=== PATIENT | female | born 1990 | race Caucasian/White ===

== ENCOUNTER → 2017-01-10 | Outpatient (CLI) | payer OTHER | LOC: GIMAGING 11:51 | PROVIDERS: ATTEND Registered Nurse | DX: R07.1 Chest pain on breathing (principal); J98.4 Other disorders of lung | CPT/HCPCS: 71020-PO ==

== ENCOUNTER 2017-01-19 08:18 | Emergency (ER) | payer SELFPAY ==
[2017-01-19] MEDS ORDERED: fentaNYL 100 MCG/2 ML INJ IVP ONE (08:52)
--- NOTE | 2017-01-19 08:53 | CPEKG ---
Heart Rate: 94 RR Interval: 638 P-R Interval: 132 QRSD Interval: 112 QT Interval: 360 QTC Interval: 451 P [place]: 63 QRS [place]: 42 T Wave [place]: 3 EKG Severity - ABNORMAL ECG - EKG Impression: SINUS RHYTHM EKG Impression: PROBABLE LEFT ATRIAL ABNORMALITY EKG Impression: NONSPECIFIC INTRAVENTRICULAR CONDUCTION DELAY Electronically Signed By: Ever Haynes 20-Jan-2017 14:10:18
--- NOTE | 2017-01-19 08:54 | EDPHY ---
H & P Stated Complaint: hurts to take a deep breath Time Seen by Provider: 01/19/17 08:43 HPI/ROS: Chief Complaint: Chest pain HPI: 26-year-old woman complaining of chest pain. Patient was diagnosed with pneumonia 1/2 weeks ago after she had some central chest pain which was worse with deep breathing. She was seen at urgent care diagnosed with a left lower lobe pneumonia on chest x-ray. Had a negative D-dimer at that time. Patient was started on a Z-Ricky and doing well. One week ago flew to [facility] with a friend from [facility] to [place]. Patient returned back to [place] yesterday. Patient woke this morning with worsening central chest pain, were standing straight up or taking a deep breath. Feels better either lying back flat or leaning forward. Patient states that yesterday her symptoms had all resolved. No fevers or chills. No cough. No nausea or vomiting. Does not have any risk factors for DVT or PE. No family history of coronary artery disease. Last menstrual period was 3 weeks ago was normal. Pain is worsened with deep inspiration. At worst about an 8/10. No pain at rest or with shallow breathing. ROS: 10 point Review of Systems is negative except as noted in the HPI. PMH: Pneumonia Medications: None, no oral contraceptives Allergies: No known drug allergies Social History: No smoking, occasional alcohol, no recreational drug use Family History: non-contributory Physical Exam: Gen: Awake, Alert, No Distress HEENT: Nose: no rhinorrhea Eyes: PERRLA, EOMI Mouth: Moist mucosa Neck: Supple, no JVD Chest: nontender, lungs clear to auscultation Heart: S1, S2 normal, no murmur Abd: Soft, non-tender, no guarding Back: no CVA tenderness, no midline tenderness Ext: no edema, non-tender Skin: no rash Neuro: CN II-XII intact, Sensation grossly intact, Strength 5/5 in bilateral upper and lower extremities - Personal History LMP (Females 10-55): 22-28 Days Ago Current Tetanus/Diphtheria Vaccine: Unsure Current Tetanus Diphtheria and Acellular Pertussis (TDAP): Unsure - Medical/Surgical History Hx Asthma: No Hx Chronic Respiratory Disease: No Hx Diabetes: No Hx Cardiac Disease: No Hx Renal Disease: No Hx Cirrhosis: No Hx Alcoholism: No Hx HIV/AIDS: No Hx Splenectomy or Spleen Trauma: No Other PMH: PNE - Social History Smoking Status: Never smoked Constitutional: Initial Vital Signs Temperature (C) 36.6 C 01/19/17 08:21 Heart Rate 88 01/19/17 08:21 Respiratory Rate 16 01/19/17 08:21 Blood Pressure 123/78 H 01/19/17 08:21 O2 Sat (%) 95 01/19/17 08:21 O2 Delivery Mode Room Air Allergies/Adverse Reactions: No Known Allergies Allergy (Unverified 01/19/17 08:23) Medical Decision Making - Diagnostics Imaging Results: Imaging Impressions Chest X-Ray 01/19/17 08:51 Impression: Bronchitis with near complete resolution of previously noted left basilar consolidation. ED Course/Re-evaluation: Chest x-ray results noted, significant improvement from prior with a nearly resolved left lower lobe infiltrate. ECG is unremarkable. D-dimer is normal. Pain is improved with analgesia here. Will discharge with follow-up as an outpatient. I have encouraged continue the [id number] nonsteroidals. Will send her home with some Zofran as well. - Data Points Laboratory Results: Laboratory Results 01/19/17 09:05 01/19/17 09:05 01/19/17 01/19/17 01/19/17 09:05 09:05 09:05 WBC RBC Hgb Hct MCV MCH MCHC RDW Plt Count MPV Neut % (Auto) Lymph % (Auto) Snyder % (Auto) Eos % (Auto) Baso % (Auto) Nucleat RBC Rel Count Absolute Neuts (auto) Absolute Lymphs (auto) Absolute Monos (auto) Absolute Eos (auto) Absolute Basos (auto) Absolute Nucleated RBC Immature Gran % Immature Gran # D-Dimer 0.33 ug/mLFEU ug/mLFEU (0.00-0.50) Sodium 143 mEq/L mEq/L (134-144) Potassium 3.7 mEq/L mEq/L (3.5-5.2) Chloride 107 mEq/L mEq/L (97-110) Carbon Dioxide 21 mEq/l L mEq/l (22-31) Anion Gap 15 mEq/L mEq/L (8-16) BUN 13 mg/dL mg/dL (7-23) Creatinine 0.7 mg/dL mg/dL (0.6-1.0) Estimated GFR > 60 Glucose 84 mg/dL mg/dL (70-100) Calcium 9.2 mg/dL mg/dL (8.5-10.4) Beta HCG, Qual NEGATIVE 01/19/17 09:05 WBC 19.99 10^3/uL H 10^3/uL (3.80-9.50) RBC 4.48 10^6/uL 10^6/uL (4.18-5.33) Hgb 13.9 g/dL g/dL (12.6-16.3) Hct 40.4 % % (38.0-47.0) MCV 90.2 fL fL (81.5-99.8) MCH 31.0 pg pg (27.9-34.1) MCHC 34.4 g/dL g/dL (32.4-36.7) RDW 12.8 % % (11.5-15.2) Plt Count 184 10^3/uL 10^3/uL (150-400) MPV 10.5 fL fL (8.7-11.7) Neut % (Auto) 92.0 % H % (39.3-74.2) Lymph % (Auto) 4.7 % L % (15.0-45.0) Snyder % (Auto) 1.5 % L % (4.5-13.0) Eos % (Auto) 1.0 % % (0.6-7.6) Baso % (Auto) 0.3 % % (0.3-1.7) Nucleat RBC Rel Count 0.0 % % (0.0-0.2) Absolute Neuts (auto) 18.42 10^3/uL H 10^3/uL (1.70-6.50) Absolute Lymphs (auto) 0.93 10^3/uL L 10^3/uL (1.00-3.00) Absolute Monos (auto) 0.30 10^3/uL 10^3/uL (0.30-0.80) Absolute Eos (auto) 0.19 10^3/uL 10^3/uL (0.03-0.40) Absolute Basos (auto) 0.06 10^3/uL 10^3/uL (0.02-0.10) Absolute Nucleated RBC 0.00 10^3/uL 10^3/uL (0-0.01) Immature Gran % 0.5 % % (0.0-1.1) Immature Gran # 0.09 10^3/uL 10^3/uL (0.00-0.10) D-Dimer Sodium Potassium Chloride Carbon Dioxide Anion Gap BUN Creatinine Estimated GFR Glucose Calcium Beta HCG, Qual Medications Given: Discontinued Medications Fentanyl (Sublimaze) 50 mcg IVP EDNOW ONE Stop: 01/19/17 08:53 Last Admin: 01/19/17 09:08 Dose: 50 mcg Pantoprazole Sodium 40 mg/ (Sodium Chloride) 100 mls @ 200 mls/hr IV EDNOW ONE Stop: 01/19/17 11:05 Last Admin: 01/19/17 10:47 Dose: 100 mls Ketorolac Tromethamine (Toradol) 15 mg IVP EDNOW ONE Stop: 01/19/17 10:37 Last Admin: 01/19/17 10:47 Dose: 15 mg Ondansetron HCl (Zofran) 4 mg IVP EDNOW ONE Stop: 01/19/17 09:11 Last Admin: 01/19/17 09:12 Dose: 4 mg Departure - Departure Disposition: Home, Routine, Self-Care Clinical Impression: Chest pain Condition: Good Instructions: Chest Pain (ED) Additional Instructions: He may take ibuprofen 600 mg 3 times a day. May take ondansetron as needed for nausea. Follow up with your primary care physician in 2-3 days for re-evaluation. Return to the emergency department for increasing chest pain, shortness of breath, fevers, chills, or any other concerns. Referrals: NONE *PRIMARY CARE P,. [Primary Care Provider] - As per Instructions Edmundo Aleman DO [Medical Doctor] - As per Instructions
[2017-01-19 09:10] LABS: % IMMATURE GRANULYOCYTES 0.5 % (0.0-1.1); ABSOLUTE IMMATURE GRANULOCYTES 0.09 10^3/uL (0.00-0.10); ADD DIFF? NO; ADD MORPH? NO; ADD SCAN? NO; ATYPICAL LYMPHOCYTE FLAG 0 (0-99); FRAGMENT RBC FLAG 0 (0-99); HEMATOCRIT 40.4 % (38.0-47.0); HEMOGLOBIN 13.9 g/dL (12.6-16.3); LEFT SHIFT FLG 20 (0-99); LIPEMIA HEMOLYSIS FLAG 90 (0-99); MEAN CELL HEMOGLOBIN CONCENTR. 34.4 g/dL (32.4-36.7); MEAN CELL VOLUME 90.2 fL (81.5-99.8); MEAN PLATELET VOLUME 10.5 fL (8.7-11.7); PLATELET CLUMPS FLAG 0 (0-99); PLATELET COUNT 184 10^3/uL (150-400); RED BLOOD CELL COUNT 4.48 10^6/uL (4.18-5.33); RED CELL DISTRIBUTION WIDTH 12.8 % (11.5-15.2)
[2017-01-19] MEDS ORDERED: ONDANSETRON 4 MG/2 ML VIAL IVP ONE (09:10)
[2017-01-19 09:31] LABS: ANION GAP 15 mEq/L (8-16); CALCIUM 9.2 mg/dL (8.5-10.4); CARBON DIOXIDE 21 mEq/l (22-31); CHLORIDE 107 mEq/L (97-110); CREATININE 0.7 mg/dL (0.6-1.0); GLOMERULAR FILTRATION RATE > 60; GLUCOSE 84 mg/dL (70-100); POTASSIUM 3.7 mEq/L (3.5-5.2); SODIUM 143 mEq/L (134-144)
[2017-01-19 10:19] VITALS: O2SAT 96
[2017-01-19] MEDS ORDERED: KETOROLAC 15 MG/1 ML SDV IVP ONE (10:36)
[2017-01-19] MEDS ORDERED: PANTOPRAZOLE SODIUM 40 MG in NS 100 ML IV ONE (10:36)
[2017-01-19] MEDS ORDERED: ONDANSETRON 4MG PREPACK#2 BTL TAKEHOME ONE (11:10)
[2017-01-19 11:21] VITALS: BP 107/65; PULSE 89; RESP 14; TEMP 98.1
== END 2017-01-19 11:27 | disposition home or self-care (01) ==
DX: R07.9 Chest pain, unspecified (principal)
CPT/HCPCS: 96365; J1885; J2405; J3010

== ENCOUNTER → 2017-01-23 | Outpatient (CLI) | payer OTHER | LOC: GIMAGING 09:10 → EDSTATUS 09:43 | PROVIDERS: ATTEND Internal Medicine | DX: J18.9 Pneumonia, unspecified organism (principal); J90 Pleural effusion, not elsewhere classified | CPT/HCPCS: 71020-PO ==

== ENCOUNTER → 2017-02-13 | Outpatient (CLI) | payer OTHER | LOC: GIMAGING 17:14 | PROVIDERS: ATTEND Internal Medicine | DX: Z09 Encounter for follow-up examination after completed treatment for conditions other than malignant neoplasm (principal); J18.9 Pneumonia, unspecified organism | CPT/HCPCS: 71020-PO ==

== ENCOUNTER → 2018-06-13 | Outpatient (CLI) | payer BC, MEDICAID, OTHER ==
[~2018-06-13] MED LIST: IOPAMIDOL (ISOVUE 370) 100 ML BTL IV ONE
== END ==
LOC: FIMAGING 13:43
PROVIDERS: ATTEND Internal Medicine Critical Care Medicine
DX: J40 Bronchitis, not specified as acute or chronic (principal)
CPT/HCPCS: Q9967